=== PATIENT | female | born 1990 | race Caucasian/White ===

== ENCOUNTER 2016-10-21 20:03 | Emergency (ER) | payer SELFPAY ==
[~2016-10-21] VITALS: Ht 160 cm; Wt 64.0 kg
[~2016-10-21 20:03] MED LIST: MACROBID100 MG PO; PYRIDIUM100 MG PO
[2016-10-21] MEDS ORDERED: FLEXERIL10 MG PO (21:11)
[2016-10-21] MEDS ORDERED: ULTRAM50 MG PO (21:11)
[2016-10-21] MEDS ORDERED: MOBIC7.5 MG PO (21:11)
[2016-10-21 21:46] VITALS: BP 172/101
== END 2016-10-21 22:11 | disposition home or self-care (01) ==
LOC: EXP 20:03 → EME 20:03 → EXP 22:11
DX: M79.1 Myalgia (principal); G89.29 Other chronic pain; M54.9 Dorsalgia, unspecified; F17.200 Nicotine dependence, unspecified, uncomplicated; I10 Essential (primary) hypertension; E55.9 Vitamin D deficiency, unspecified
CPT/HCPCS: 99281; 99284; J1885

== ENCOUNTER 2017-09-23 15:40 | Emergency (ER) | payer OTHER ==
[~2017-09-23] VITALS: Ht 160 cm; Wt 105.2 kg
[~2017-09-23 15:40] MED LIST changes: +FLEXERIL10 MG PO; +MOBIC7.5 MG PO; +ULTRAM50 MG PO
[2017-09-23 16:37] LABS: HEMATOCRIT 43.3 % (36.0-46.0); HEMOGLOBIN 15.2 G/DL (11.9-15.5); MCH 31.7 PG (29.0-34.0); MCHC 35.1 G/DL (30.0-36.0); MCV 90.2 FL (83-99); PLATELET COUNT 302 K/uL (156-360); RBC DIS.WIDTH-CV 11.7 % (11.8-14.6); RBC DIS.WIDTH-SD 38.6 % (39-53); WHITE BLOOD COUNT 10.8 K/uL (4.1-10.2)
[2017-09-23 16:46] LABS: ALBUMIN 4.5 g/dL (3.2-4.8); CHLORIDE 107 mEq/L (99-109); POTASSIUM 3.7 mEq/L (3.7-5.4); SODIUM 139 mEq/L (136-147)
[2017-09-23 16:48] LABS: GLUCOSE 97 mg/dL (70-99); TOTAL PROTEIN 7.7 g/dL (6.4-8.3)
[2017-09-23 16:50] LABS: TOTAL BILIRUBIN 0.6 mg/dL (0.0-1.0)
[2017-09-23 16:51] LABS: SERUM ETHYL ALCOHOL < 10 mg/dL
[2017-09-23 16:52] LABS: ALKALINE PHOSPHATASE 61 IU/L (3-129); CREATININE 0.7 mg/dL (0.6-1.3); GFR ESTIMATE (CALCULATED) > 59 mL/min/
[2017-09-23 16:53] LABS: UREA NITROGEN (BUN) 8 mg/dL (9-23)
[2017-09-23 16:54] LABS: AST (GOT) 21 IU/L (2-34)
[2017-09-23 16:55] LABS: ALT (GPT) 12 IU/L (3-49)
[2017-09-23 17:03] LABS: QUANTITATIVE HCG < 4.0 MIU/ML
[2017-09-23 18:19] LABS: AMPHETAMINE NEGATIVE (500 ng/mL); BARBITURATES NEGATIVE (200 ng/mL); BENZODIAZEPINES NEGATIVE (150 ng/mL); BUPRENORPHINE NEGATIVE (10 ng/mL); COCAINE NEGATIVE (150 ng/mL); METHADONE NEGATIVE (200 ng/mL); METHAMPHETAMINE NEGATIVE (500 ng/mL); OPIATES (MORPHINE) NEGATIVE (100 ng/mL); OXYCODONE NEGATIVE (100 ng/mL); PHENCYCLIDINE NEGATIVE (25 ng/mL); PROPOXYPHENE NEGATIVE (300 ng/mL); THC CANNABINOIDS PRESUMPTIVE POSITIVE (50 ng/mL); TRICYCLIC ANTIDEPRESSANTS NEGATIVE (300 ng/mL)
[2017-09-23] MEDS ORDERED: ATARAX,VISTARIL25 MG PO (18:54)
[2017-09-23 19:02] VITALS: BP 142/87
== END 2017-09-23 19:02 | disposition home or self-care (01) ==
LOC: EME 15:40
PROVIDERS: Emergency Medicine
DX: F43.0 Acute stress reaction (principal); F17.200 Nicotine dependence, unspecified, uncomplicated; Z88.0 Allergy status to penicillin; Z88.5 Allergy status to narcotic agent
CPT/HCPCS: 80053; 84443; 84702; 84999; 85027; 90839; 99281; 99285; G0480